=== PATIENT | female | born 1965 | race Caucasian/White ===

== ENCOUNTER 2018-10-06 08:53 | Emergency (ER) | payer MEDICAID ==
--- NOTE | 2018-10-06 09:20 | ED Physician Chart ---
ED Chief Complaint/HPI - Patient Information Date Seen:: 10/06/18 Time Seen:: 09:30 Chief Complaint:: cough back pain Allergies:: Allergies Allergy/AdvReac Type Severity Reaction Status Date / Time No Known Allergies Allergy Verified 10/06/18 09:15 Vitals:: Vital Signs - 8 hr 10/06/18 09:10 HR 107 RR 18 BP 159/85 O2 Sat % 95 ED Review of Systems - Review of Systems General/Constitutional: No fever ED Past Medical History - Past Medical History Past Medical History: Other (anxiety) ED Physical Exam - Physical Examination General/Constitutional: Alert, Non-toxic appearing, Ambulatory Head: Atraumatic Eyes: Lids, conjuctiva normal Skin: Nl inspection ENMT: External ears, nose nl Neck: Nontender Cardio Vascular: No murmur, gallop, rubs GI: No tenderness/rebounding/guarding : No CVA tenderness Extremities: No tenderness or effusion Neuro/Psych: Alert/oriented, Normal motor strength Misc: Normal back ED Septic Shock - . Is Septic Shock (SBP<90, OR Lactate>4 mmol\L) present?: No - <6hrs of presentation: Vital Signs: Vital Signs - 8 hr 10/06/18 09:10 HR 107 RR 18 BP 159/85 O2 Sat % 95
[2018-10-06 09:53] LABS: URINE SOURCE RANDOM
[2018-10-06 10:08] LABS: URINE BILIRUBIN NEGATIVE (NEGATIVE); URINE BLOOD MODERATE (NEGATIVE); URINE GLUCOSE (UA) NEGATIVE (NEGATIVE); URINE KETONE NEGATIVE (NEGATIVE); URINE LEUKOCYTE ESTERASE NEGATIVE (NEGATIVE); URINE MICROSCOPIC INDICATED? YES; URINE NITRATE NEGATIVE (NEGATIVE); URINE PROTEIN 30 mg/dL (NEGATIVE); URINE UROBILINOGEN 0.2 E.U./dL (0.2 - 1.0)
[2018-10-06 10:13] LABS: URINE COLOR YELLOW
[2018-10-06 10:17] LABS: URINE CLARITY HAZY (CLEAR)
[2018-10-06 10:30] LABS: URINE BACTERIA FEW /hpf (NONE SEEN); URINE EPITHELIAL CELLS FEW /lpf (FEW); URINE WBC 0-2 /hpf (0-5)
--- NOTE | 2018-10-06 10:30 | Diagnostic Imaging Report ---
Chest x-ray 2 views HISTORY:Cough The overall heart size is normal. No focal pulmonary processes. No hilar or mediastinal abnormalities. IMPRESSION: No acute abnormalities.
[2018-10-06 10:34] LABS: BENZODIAZEPINES QUAL URINE POSITIVE (NEGATIVE); OPIATES (MORPHINE) QUAL. URINE POSITIVE (NEGATIVE)
[2018-10-06 10:40] LABS: AMPHETAMINE URINE NEGATIVE (NEGATIVE); BARBITURATES URINE NEGATIVE (NEGATIVE); CANNABINOID THC NEGATIVE (NEGATIVE); COCAINE METABOLITE QUAL URINE NEGATIVE (NEGATIVE); METHADONE URINE NEGATIVE (NEGATIVE); METHAMPHETAMINES QUAL URINE NEGATIVE (NEGATIVE); PHENCYCLIDINE (PCP) URINE NEGATIVE (NEGATIVE); TRICYCLICS (TCA) QUAL. URINE NEGATIVE (NEGATIVE)
--- NOTE | 2018-10-06 13:41 | Diagnostic Imaging Report ---
Renal ultrasound HISTORY: Pain The right kidney is normal in size (10.8 x 5.2 x 5.1 cm). No focal lesions. No hydronephrosis. The left kidney is normal in size (10.7 x 5.8 x 4.5 cm). No focal lesions. No hydronephrosis. No intraluminal abnormality seen within the urinary bladder. No significant post void residual. IMPRESSION: Negative examination
== END 2018-10-06 12:00 | disposition home or self-care (01) ==
LOC: ER 08:53
DX: R05 Cough (principal); M54.9 Dorsalgia, unspecified
CPT/HCPCS: 71046-TC; 76770-TC; 80307; 81001-TC; 81025-TC; 87086-90

== ENCOUNTER 2018-11-02 13:44 | Emergency (ER) | payer MEDICAID ==
--- NOTE | 2018-11-02 16:35 | ED Physician Chart ---
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 Allergies:: Allergies Allergy/AdvReac Type Severity Reaction Status Date / Time No Known Allergies Allergy Verified 10/06/18 09:15 Vitals:: Vital Signs - 8 hr 11/02/18 13:45 Temp 98.2 F HR 91 RR 18 BP 141/64 O2 Sat % 95 Historian:: Patient, Family Member Review:: Nurse's Note Reviewed, Old Chart Reviewed ED Review of Systems - Review of Systems General/Constitutional: No fever, No chills, No weight loss, No weakness, No diaphoresis, No edema, No loss of appetite Skin: No skin lesions, No rash, No bruising Head: No headache, No light-headedness Eyes: No loss of vision, No pain, No diplopia ENT: No earache, No nasal drainage, No sore throat, No tinnitus Neck: No neck pain, No swelling, No thyromegaly, No stiffness, No mass noted Cardio Vascular: No chest pain, No palpitations, No PND, No orthopnea, No edema Pulmonary: No SOB, No cough, No sputum, No wheezing GI: No nausea, No vomiting, No diarrhea, No pain, No melena, No hematochezia, No constipation, No hematemesis G/U: No dysuria, No frequency, No hematuria, No nacturia Research Microbiologist: No vaginal discharge, No abnormal vaginal bleed, No contraction Musculoskeletal: No bone or joint pain, No back pain, No muscle pain Endocrine: No polyuria, No polydipsia Psychiatric: Prior psych history, No depression, Anxiety, No suicidal ideation, No homicidal ideation, No auditory hallucination, No visual hallucination Hematopoietic: No bruising, No lymphadenopathy Allergic/Immuno: No urticaria, No angioedema Neurological: No syncope, No focal symptoms, No weakness, No paresthesia, No headache, No seizure, No dizziness, No confusion, No vertigo ED Past Medical History - Past Medical History Obtainable: Yes Past Medical History: No significant medical hx Family History: None Social History: Non Smoker, Alcohol, No Drug Use, Surgical History: None Psychiatricy History: Other (Anxiety Disorder) Medication: Reviewed Family Medical History - Family Member Mother History Unknown: Yes ED Physical Exam - Physical Examination General/Constitutional: Awake, Well-developed, well-nourished, Alert, No distress, GCS 15, Non-toxic appearing, Ambulatory Head: Atraumatic Eyes: Lids, conjuctiva normal, PERRL, EOMI Skin: Nl inspection, No rash, No skin lesions, No ecchymosis, Well hydrated, No lymphadenopathy ENMT: External ears, nose nl, TM canals nl, Nasal exam nl, Lips, teeth, gums nl , Oropharynx nl, Tonsils nl Neck: Nontender, Full ROM w/o pain, No JVD, No nuchal rigidity, No bruit, No mass, No stridor Other Neck comments:: supple; no meningeal signs; no cervical tenderness; no bruits Respiratory: Nl effort/Exclusion, Clear to Auscultation, No Wheeze/Rhonchi/Rales Cardio Vascular: RRR, No murmur, gallop, rubs, NL S1 S2, Carotid/Femoral/Distal pulses equal bilaterally GI: No tenderness/rebounding/guarding, No organomegaly, No hernia, Normal BS's, Nondistended, No mass/bruits, No McBurney tenderness, Rectum exam nl Other GI comments:: no pulsatile masses : No CVA tenderness Extremities: No tenderness or effusion, Full ROM, normal strength in all extremities, No edema, Normal digits & nails Neuro/Psych: Alert/oriented, DTR's symmetric, Normal sensory exam, Normal motor strength, Judgement/insight normal, Mood normal, Normal gait, No focal deficits Other Neuro/Psych comments:: no focal signs; MSE: WNL; no SIs; Mood/Affect: Stable Misc: Normal back, No paraspinal tenderness ED Labs/Radiology/EKG Results - Lab Results Comments:: deferred by pt - Radiology Results Comments:: deferred by pt - EKG Interpretations Comments:: deferred by pt ED Septic Shock - . Is Septic Shock (SBP<90, OR Lactate>4 mmol\L) present?: No - <6hrs of presentation: Vital Signs: Vital Signs - 8 hr 11/02/18 13:45 Temp 98.2 F HR 91 RR 18 BP 141/64 O2 Sat % 95 ED Reassessment (Disposition) - Reassessment Reassessment:: pt tolerated po fluids well in ER; pt is asymptomatic upon discharge Reassessment Condition:: Improved - Diagnosis Diagnosis:: Dx: Anxiety Disorder; Alcohol Withdrawal; Alcohol Abuse - Aftercare/Follow up Instructions Aftercare/Follow-Up Instructions:: Counseled pt regarding lab results/diagnosis & need follow up, Refer to Discharge Instructions, Counseled pt & family regarding lab results/diagnosis & need follow up Medication Prescribed:: Rx: Librium 25mg po tid prn anxiety; Avoid Alcohol Beverages; take medications as prescribed - Patient Disposition Discharge/Transfer:: Home Condition at Disposition:: Stable, Improved (RTER prn if existing s/s reoccur and/or get worse and/or any other new s/s occur; ACIs given for all above Dx; Refer to [facility]; Refer to Psychiatrist/Hole Digger Operator ROBYN; F/U with PMD in one day or prn; RTER prn if concerned)
== END 2018-11-02 13:57 | disposition home or self-care (01) ==
LOC: ER 13:44
DX: F41.9 Anxiety disorder, unspecified (principal); F10.239 Alcohol dependence with withdrawal, unspecified